=== PATIENT | female | born 1975 | race Two or more races ===

== ENCOUNTER 2019-06-28 14:36 | Emergency (ER) | payer MEDICAID, OTHER ==
[~2019-06-28] VITALS: Ht 157.5 cm; Wt 79.4 kg
[2019-06-28 16:29] VITALS: BP 122/66
== END 2019-06-28 17:41 | disposition home or self-care (01) ==
LOC: ER 14:36
DX: L23.9 Allergic contact dermatitis, unspecified cause (principal)

== ENCOUNTER 2019-08-28 00:10 | Emergency (ER) | payer MEDICAID ==
[~2019-08-28] VITALS: Ht 160 cm; Wt 70.7 kg
[2019-08-28 03:38] VITALS: BP 108/72
== END 2019-08-28 04:14 | disposition home or self-care (01) ==
LOC: ER 00:13
DX: R51 Headache (principal); R55 Syncope and collapse; R11.2 Nausea with vomiting, unspecified; R53.83 Other fatigue; R42 Dizziness and giddiness
CPT/HCPCS: 70450; 81002

== ENCOUNTER 2019-10-11 15:22 | Emergency (ER) | payer MEDICAID ==
[~2019-10-11] VITALS: Ht 154.9 cm; Wt 83.9 kg
[2019-10-11 15:34] VITALS: BP 138/84
== END 2019-10-11 16:18 | disposition home or self-care (01) ==
LOC: ER 15:22
DX: J20.9 Acute bronchitis, unspecified (principal)

== ENCOUNTER 2020-06-09 12:00 | Emergency (ER) | payer MEDICAID ==
[~2020-06-09] VITALS: Ht 160 cm; Wt 77.1 kg
[2020-06-09] MEDS ORDERED: SODIUM CHLORIDE 0.9% 1,000 ML IV ONE (12:15)
[2020-06-09 12:30] VITALS: BP 114/81
[2020-06-09 13:07] LABS: Basophils # (auto) 0 10 ^3/uL (0-0.2); Basophils % (auto) 0.6 % (0.0-2.0); Eosinophils # (auto) 0.1 10 ^3/uL (0-0.8); Eosinophils % (auto) 1.6 % (0.0-7.0); Hematocrit 38.5 % (36.0-46.0); Hemoglobin 12.6 g/dL (12.2-16.2); Lymphocytes # (auto) 1.2 10 ^3/uL (0.4-5.4); Lymphocytes % (auto) 16.1 % (10.0-50.0); Mean Corpuscular Hemoglobin 27.7 pg (28.0-32.0); Mean Corpuscular Hgb Conc. 32.7 g/dL (32.0-36.0); Mean Corpuscular Volume 84.6 fL (80.0-100.0); Monocytes # (auto) 0.5 10 ^3/uL (0-1.3); Monocytes % (auto) 6.1 % (0.0-12.0); Neutrophils # (auto) 5.8 10 ^3/uL (1.6-8.6); Neutrophils % (auto) 75.6 % (37.0-80.0); Platelet Count (auto) 324 10^3/uL (140-450); Red Blood Cells 4.56 10^6/uL (4.0-5.20); Red Cell Distribution Width 15.3 % (11.8-14.3); White Blood Cell 7.7 10^3/uL (4.4-10.8)
[2020-06-09 13:26] LABS: Alanine Aminotransferase 15 U/L (13-56); Albumin 3.4 g/dL (3.4-5.0); Anion Gap 5 (5-15); Aspartate Aminotransferase 15 U/L (15-37); BUN/Creatinine Ratio 14.3; Blood Urea Nitrogen 11 mg/dL (7-18); Calcium 9.2 mg/dL (8.5-10.1); Carbon Dioxide 28 mmol/L (21-32); Chloride 106 mmol/L (98-107); GFR African American 105 mL/min; GFR Non-African American 87 mL/min; Glucose 92 mg/dL (74-106); Sodium 139 mmol/L (136-145)
[2020-06-09 13:31] LABS: Alkaline Phosphatase 88 U/L (45-117); Bilirubin, Total 0.2 mg/dL (0.2-1.0); Total Protein 7.5 g/dL (6.4-8.2)
[2020-06-09 15:12] LABS: Urine Bacteria FEW /hpf (None Seen); Urine Blood 2+ /uL (Negative); Urine Hyaline Cast FEW /lpf (0 - 2); Urine Mucus FEW (None Seen); Urine Specific Gravity 1.023 (1.001-1.035); Urine WBC 16 /hpf (0 - 5)
== END 2020-06-09 14:59 | disposition home or self-care (01) ==
LOC: EDBD 12:00 → ER 12:00
DX: R55 Syncope and collapse (principal); R42 Dizziness and giddiness; W18.39XA Other fall on same level, initial encounter; Y93.01 Activity, walking, marching and hiking; Y92.091 Bathroom in other non-institutional residence as the place of occurrence of the external cause; Y99.8 Other external cause status
CPT/HCPCS: 36415; 70450; 71045; 72125; 72192; 80053; 81001; 84484; 85025; 96360